=== PATIENT | female | born 1975 | race Native Hawaiian/Other Pacific Islander ===

== ENCOUNTER 2017-03-16 15:45 | Emergency (ER) | payer OTHER ==
[~2017-03-16] VITALS: Ht 167.6 cm; Wt 108.9 kg
[2017-03-16] MEDS ORDERED: LISI10TA11 PO (15:54)
[2017-03-16 16:25] VITALS: BP 150/89; TEMP 98.6
== END 2017-03-16 16:25 | disposition home or self-care (01) ==
LOC: ED 15:45
DX: X50.1XXA Overexertion from prolonged static or awkward postures, initial encounter (principal); X50.3XXA Overexertion from repetitive movements, initial encounter; Y93.89 Activity, other specified; Y92.89 Other specified places as the place of occurrence of the external cause; M79.1 Myalgia
CPT/HCPCS: 99282